=== PATIENT | female | born 1980 | race Caucasian/White ===

== ENCOUNTER 2017-07-20 10:58 | Emergency (ER) | payer OTHER, MEDICAID ==
[~2017-07-20] VITALS: Ht 165.1 cm; Wt 99.0 kg
[~2017-07-20 10:58] MED LIST: ARTH650T6 PO; IBUP800T23 PO; NASA0.653; PENI250T59 PO
[2017-07-20 11:03] VITALS: BP 129/92; PULSE 114; RESP 20; TEMP 99.2; O2SAT 98
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
[2017-07-20] MEDS ORDERED: ONDANSETRON ODT 4 MG TAB PO ONE (13:15)
[2017-07-20] MEDS ORDERED: LORazepam 2 MG TAB PO ONE (13:15)
[2017-07-20] MEDS ORDERED: MORPHINE SULFATE 4 MG/ML INJ IM ONE (13:15)
[2017-07-20 13:35] VITALS: RESP 16
[2017-07-20] MEDS ORDERED: CEPH-460 PO (14:51)
[2017-07-20] MEDS ORDERED: ULTR50TA5 PO (14:53)
== END 2017-07-20 15:14 | disposition home or self-care (01) ==
LOC: PHEFT 10:58
DX: S81.812A Laceration without foreign body, left lower leg, initial encounter (principal); S00.03XA Contusion of scalp, initial encounter; V19.00XA Pedal cycle driver injured in collision with unspecified motor vehicles in nontraffic accident, initial encounter; Y92.410 Unspecified street and highway as the place of occurrence of the external cause
CPT/HCPCS: 12035; 70450; 72125; 73564; 96372; 99285; E0113; J2270; L1830

== ENCOUNTER 2017-08-11 09:10 | Emergency (ER) | payer OTHER, MEDICAID ==
[~2017-08-11] VITALS: Ht 167.6 cm; Wt 105.0 kg
[~2017-08-11 09:10] MED LIST changes: -ARTH650T6 PO; +CEPH-460 PO; -IBUP800T23 PO; -NASA0.653; -PENI250T59 PO; +ULTR50TA5 PO
[2017-08-11 09:13] VITALS: BP 118/57; PULSE 78; RESP 18; TEMP 98.6; O2SAT 100
--- NOTE | 2017-08-11 09:41 | PD ---
HPI Chief Complaint: Wound/Suture/Staple Re-Check Time Seen by Provider: 09:33 Travel History International Travel<30 days: No Contact w/Intl Traveler<30days: No Traveled to known affect area: No History of Present Illness HPI 37-year-old female came to the emergency room for stitches taken out from her left knee. This was put in 3 weeks ago. Patient is been in knee immobilizer since then. She is going to see a physical therapist but they didn't want to do anything until the stitches are out. Wound is healing well. [facility] Past Medical History Narrative Medical List of her past medical, surgical, social and family history as reviewed from the nursing note. Diminished Hearing: No ?: Not LMP: 07/2017 Social History Alcohol Use: Yes (socially) Tobacco Use: No (former) Substance Use: No Allergies-Medications (Allergen,Severity, Reaction): Coded Allergies: No Known Allergies (Unverified , 08/11/17) Comments no known drug allergies Reported Meds & Prescriptions Reported Meds & Active Scripts Active Narrative Medication List of her home medications review from the nursing note Review of Systems Except as stated in HPI: all other systems reviewed are Neg Physical Exam Narrative GENERAL: Awake, alert, no obvious distress, obese SKIN: Focused skin assessment warm/dry. Left knee laceration healing well. Multiple interrupted stitches HEAD: Atraumatic. Normocephalic. EYES: Pupils equal and round. No scleral icterus. No injection or drainage. ENT: No nasal bleeding or discharge. Mucous membranes pink and moist. NECK: Trachea midline. No JVD. CARDIOVASCULAR: Regular rate and rhythm. No murmur appreciated. RESPIRATORY: No accessory muscle use. Clear to auscultation. Breath sounds equal bilaterally. GASTROINTESTINAL: Abdomen soft, non-tender, nondistended. Hepatic and splenic margins not palpable. MUSCULOSKELETAL: No obvious deformities. No clubbing. No cyanosis. No edema. NEUROLOGICAL: Awake and alert. No obvious cranial nerve deficits. Motor grossly within normal limits. Normal speech. PSYCHIATRIC: Appropriate mood and affect; insight and judgment normal. Data Data Last Documented VS Vital Signs Date Time Temp Pulse Resp B/P (MAP) Pulse Ox O2 Delivery O2 Flow Rate FiO2 08/11/17 09:13 98.6 78 18 118/57 (77) 100 MDM Medical Decision Making Medical Screen Exam Complete: Yes Emergency Medical Condition: Yes Medical Record Reviewed: Yes Differential Diagnosis Suture removal Narrative Course 9:40 AM all the interrupted sutures were taken out. The wound in the middle appears to be unopposed about 1 cm length. It'll have to heal by secondary intention. I have recommended her not to wear the knee immobilizer anymore and start physical therapy as soon as possible. Procedures EKG Prior to Arrival: No Diagnosis Primary Impression: Visit for suture removal Referrals: Primary Care Physician Additional Instructions: Please do not wear the knee immobilizer anymore and start physical therapy as soon as possible. You're cleared from ER standpoint for physical therapy. The wound in the center will heal on its own by secondary intention. Keep it clean and dry. Apply the antibiotic ointment twice a day. Any signs of infection in need to return to the ER immediately. Med/Other Pt SpecificInfo: No Change to Meds Disposition: 01 DISCHARGE HOME Condition: Stable Mychal Domingo MD Aug 11, 2017 09:41
== END 2017-08-11 09:51 | disposition home or self-care (01) ==
LOC: PHED 09:10 → PHEFT 09:51
DX: S81.012D Laceration without foreign body, left knee, subsequent encounter (principal); X58.XXXD Exposure to other specified factors, subsequent encounter; Z48.02 Encounter for removal of sutures
CPT/HCPCS: 99281

== ENCOUNTER 2017-12-05 08:47 | Emergency (ER) | payer MEDICAID, OTHER ==
[2017-12-05 08:50] VITALS: BP 156/83; PULSE 92; RESP 16; TEMP 98.6; O2SAT 99
--- NOTE | 2017-12-05 09:05 | PD ---
HPI Chief Complaint: Complaint Time Seen by Provider: 08:57 Travel History International Travel<30 days: No Contact w/Intl Traveler<30days: No Traveled to known affect area: No History of Present Illness HPI Patient comes in complaining of painful urination ongoing for 1 week. Patient reports she only has pain when she voids that is burning like in nature without radiation. Patient has been taking ibuprofen with no relief of symptoms. Denies anything making it better or worse. Denies back pain, , nausea , vomiting, diarrhea, vaginal discharge, chest pain, shortness of breath, or abdominal pain. PFSH Past Medical History Medical History: Denies Significant Hx Diminished Hearing: No ?: Unknown LMP: CAN'T REMEMBER Social History Alcohol Use: Yes (socially) Tobacco Use: No (former) Substance Use: No Allergies-Medications (Allergen,Severity, Reaction): Coded Allergies: No Known Allergies (Unverified Adverse Reaction, Unknown, 12/05/17) Reported Meds & Prescriptions Reported Meds & Active Scripts Active Bactrim DS (Sulfamethoxazole-Trimethoprim) 800-160 Mg Tab 1 Tab PO BID Reported Ibuprofen 600 Mg Tab 600 Mg PO Q6H PRN Review of Systems Except as stated in HPI: all other systems reviewed are Neg Physical Exam Narrative GENERAL: Well-developed, overly nourished, in no acute distress, and non-ill appearing. SKIN: Focused skin assessment warm and dry. HEAD: Atraumatic. Normocephalic. EYES: Pupils equal and round. EOMI. No scleral icterus. No injection or drainage. ENT: No nasal bleeding or discharge. Mucous membranes pink and moist. NECK: Trachea midline. Supple. No nuclear rigidity. CARDIOVASCULAR: Regular rate and rhythm. No murmur appreciated. RESPIRATORY: No accessory muscle use. No respiratory distress. GASTROINTESTINAL: Abdomen soft, non-tender, nondistended, and no guarding. Hepatic and splenic margins not palpable. Normal bowel sounds 4. No pulsatile mass. MUSCULOSKELETAL: No obvious deformities. No clubbing. No cyanosis. No edema. Full range of motion. NEUROLOGICAL: Awake and alert. No obvious cranial nerve deficits. Motor grossly within normal limits. Normal speech. PSYCHIATRIC: Appropriate mood and affect; insight and judgment normal. Data Data Last Documented VS Vital Signs Date Time Temp Pulse Resp B/P (MAP) Pulse Ox O2 Delivery O2 Flow Rate FiO2 12/05/17 08:50 98.6 92 16 156/83 (107) 99 Orders Orders Urinalysis - C+S If Indicated (12/05/17 08:49) Ed Urine Pregnancytest Poc (12/05/17 08:49) Urine Culture (12/05/17 09:05) Ed Discharge Order (12/05/17 09:28) Labs Laboratory Tests Test 12/05/17 09:05 Urine Collection Type CLEAN CATCH Urine Color YELLOW Urine Turbidity SLIGHT Urine pH 6.5 Urine Specific [place] 1.026 Urine Protein NEG mg/dL Urine Glucose (UA) NEG mg/dL Urine Ketones TRACE mg/dL Urine Occult Blood TRACE Urine Nitrite NEG Urine Bilirubin NEG Urine Leukocyte Esterase SMALL Urine RBC 4-9 /hpf Urine WBC 50-99 /hpf Urine WBC Clumps FEW Urine Squamous Epithelial Cells 0-5 /hpf Urine Transitional Epithelial Cells 0-5 /hpf Urine Bacteria FEW /hpf Microscopic Urinalysis Comment CULTURE INDICATED Urine Collection Time 09:05 [facility] Medical Decision Making Medical Screen Exam Complete: Yes Emergency Medical Condition: Yes Differential Diagnosis UTI, , dysuria, STD Narrative Course The patient presentation with history and evaluation are consistent with UTI. There is no evidence of pyelonephritis. The patient is tolerating fluids, no fever and no back pain. There is no clinical evidence to suggest atypical cervicitis, PID, appendicitis. The patient was discharged on antibiotics and given warnings to return if condition worsens in any way, fever, vomiting and unable to tolerate medications or fluids, back pain or as needed. The patient was instructed to follow up with their physician. The patient agrees with plan of care. Patient in no obvious distress upon re-evaluation. All pertinent laboratory result(s) discussed with patient. Patient was asked if they wanted to speak to my attending, which the patient did not wish to do at this time. Any questions/ concerns in reference to patient diagnosis/condition discussed and clarified prior to patient's discharge. Reinforced sheer importance of close follow up with patient's primary physician or primary care clinic. Instructed patient to return to ED immediately, if symptoms return/worsen. Patient showed understanding of above instructions. Further instructions and recommendations were detailed in discharge paperwork. Patient ambulated without difficulty out of ED at discharge. Diagnosis Primary Impression: UTI (urinary tract infection) Qualified Codes: N39.0 - Urinary tract infection, site not specified; R31.9 - Hematuria, unspecified Referrals: [facility] Patient Instructions: General Instructions, Urinary Tract Infection in Women ( ED) Additional Instructions: Follow-up with your primary care physician in 3-5 days for reevaluation. Take all medication as prescribed. Return to the emergency department if symptoms get worse. Med/Other Pt SpecificInfo: Prescription(s) given Scripts Sulfamethoxazole-Trimethoprim (Bactrim DS) 800-160 Mg Tab 1 TAB PO BID for Infection, #14 TAB 0 Refills Prov: Dustin Millard MD 12/05/17 Disposition: 01 DISCHARGE HOME Condition: Stable Ronaldo Verdin Dec 05, 2017 09:05
[2017-12-05] MEDS ORDERED: IBUP-232 PO (09:07)
[2017-12-05 09:14] LABS: BILIRUBIN, URINE NEG (NEG); BLOOD, URINE TRACE (NEG); GLUCOSE,URINE NEG (NEG); KETONE, URINE TRACE mg/dL (NEG); NITRITE,URINE NEG (NEG); PH, URINE 6.5 (5.0-8.5); URINE LEUKOCYTE ESTERASE SMALL (NEG)
[2017-12-05 09:19] LABS: URINE COLOR YELLOW (YELLW/STRAW)
[2017-12-05 09:20] LABS: BACTERIA, URINE FEW /hpf; SQUAMOUS EPITHELIAL CELL URINE 0-5 /hpf (0-5); TRANSITIONAL EPI CELLS, URINE 0-5 /hpf; WHITE BLOOD CELL CLUMPS FEW
[2017-12-05] MEDS ORDERED: BACT800T5 PO (09:24)
== END 2017-12-05 09:37 | disposition home or self-care (01) ==
LOC: PHEFT 08:47
DX: N39.0 Urinary tract infection, site not specified (principal); R31.9 Hematuria, unspecified
CPT/HCPCS: 81001; 84703; 87086; 99283